=== PATIENT | female | born 1940 | race Caucasian/White ===

== ENCOUNTER → 2017-05-29 | Outpatient (CLI) | payer MEDICARE, OTHER ==
--- NOTE | 2017-06-11 13:31 | MM ---
Reason for exam: additional evaluation requested from prior study. Last mammogram was performed 1 year and 4 months ago. History: Patient is postmenopausal and has history of breast cancer at age 69. Lumpectomy of the right breast, 2008. Radiation therapy of the right breast, 2008. Physical Findings: Nurse did not find any significant physical abnormalities on exam. MG 3D Diag Mammo W/Cad DENISSE Bilateral CC and MLO view(s) were taken. Prior study comparison: January 15, 2016, mammogram, performed at [place]. January 05, 2015, mammogram, performed at [place]. There are scattered fibroglandular densities. Finding: Architectural distortion in the lower inner quadrant of the right breast consistent with known lumpectomy. There is no discrete abnormality. These results were verbally communicated with the patient on 06/11/17. ASSESSMENT: Benign, BI-RAD 2 RECOMMENDATION: Follow-up diagnostic mammogram of both breasts in 1 year.
== END | disposition home or self-care (01) ==
LOC: RADMAMWWP 15:33
PROVIDERS: ATTEND Family Medicine
DX: R92.8 Other abnormal and inconclusive findings on diagnostic imaging of breast (principal)
CPT/HCPCS: G0204; G0279

== ENCOUNTER → 2018-06-07 | Outpatient (CLI) | payer MEDICARE, OTHER ==
--- NOTE | 2018-06-17 07:32 | MM ---
Reason for exam: known biopsy proven malignancy. Last mammogram was performed 1 year ago. History: Patient is postmenopausal and has history of breast cancer at age 69. Lumpectomy of the right breast, 2008. Radiation therapy of the right breast, 2008. Physical Findings: Nurse did not find any significant physical abnormalities on exam. MG 3D Diag Mammo W/Cad DENISSE Bilateral CC, MLO, and ML view(s) were taken. Spot compression XCCL view(s) were taken of the right breast. Prior study comparison: May 29, 2017, bilateral MG 3d diag mammo w/cad DENISSE. January 15, 2016, mammogram, performed at [place]. January 05, 2015, mammogram, performed at [place]. There are scattered fibroglandular densities. There is a distortion in the right breast lower inner position consistent with known lumpectomy site. No discrete abnormality. Asymmetric breast tissue right upper outer quadrant . ASSESSMENT: Benign, BI-RAD 2 RECOMMENDATION: Follow-up diagnostic mammogram in 1 year.
== END ==
LOC: RADMAMWWP 14:48
PROVIDERS: ATTEND Family Medicine
DX: Z08 Encounter for follow-up examination after completed treatment for malignant neoplasm (principal); Z85.3 Personal history of malignant neoplasm of breast
CPT/HCPCS: 77066; G0279; 77062

== ENCOUNTER → 2019-08-01 | Outpatient (CLI) | payer MEDICARE ==
--- NOTE | 2019-08-03 08:24 | MM ---
Reason for exam: additional evaluation requested from prior study. Last mammogram was performed 1 year and 2 months ago. History: Patient is postmenopausal and has history of breast cancer at age 69. Lumpectomy of the right breast, 2008. Radiation therapy of the right breast, 2008. Physical Findings: Nurse did not find any significant physical abnormalities on exam. MG 3D Diag Mammo W/Cad DENISSE Bilateral CC and MLO view(s) were taken. Prior study comparison: June 07, 2018, bilateral MG 3d diag mammo w/cad DENISSE. May 29, 2017, bilateral MG 3d diag mammo w/cad DENISSE. There are scattered fibroglandular densities. Post therapy change on the right. New trabecular thickening in the upper outer quadrant in comparison to remote prior exams. This appears unrelated to the lumpectomy site. These results were verbally communicated with the patient and result sheet given to the patient on 08/01/19. ASSESSMENT: Incomplete: need additional imaging evaluation, BI-RAD 0 RECOMMENDATION: Ultrasound of the right breast. upper outer quadrant
--- NOTE | 2019-08-03 08:29 | USB ---
Reason for exam: additional evaluation requested from abnormal screening. History: Patient is postmenopausal and has history of breast cancer at age 69. Lumpectomy of the right breast, 2009. Radiation therapy of the right breast, 2009. US Breast Limited RT Right limited breast ultrasound including focal area of concern, retroareolar and axilla demonstrates no cystic or solid lesion seen. These results were verbally communicated with the patient and result sheet given to the patient on 08/01/19. ASSESSMENT: Negative, BI-RAD 1 RECOMMENDATION: Breast MRI of both breasts. ACR advised annual MRI patient history of cancer and abnormal mammogram. Surgical consultation of the right breast. High risk patient with trabeculation increased. Called Dr. Anaya's office with mammographic findings and has scheduled an appointment for the patient for 09/09/19 at 11:[address] Lafleur. PRELIMINARY REPORT CALLED AND FAXED TO DR. LAFLEUR ON 08/01/19. Follow-up diagnostic mammogram of both breasts in 1 year.
== END | disposition home or self-care (01) ==
LOC: RADMAMWWP 14:43
PROVIDERS: ATTEND Family Medicine
DX: R92.8 Other abnormal and inconclusive findings on diagnostic imaging of breast (principal)
CPT/HCPCS: 77066; 76642; G0279; 77062

== ENCOUNTER → 2020-09-26 | Outpatient (CLI) | payer MEDICARE ==
--- NOTE | 2020-09-27 10:34 | MM ---
Reason for exam: additional evaluation requested from prior study. Last mammogram was performed 1 year and 2 months ago. History: Patient is postmenopausal and has history of breast cancer at age 69. Lumpectomy of the right breast, 2009. Radiation therapy of the right breast, 2008. Physical Findings: Nurse did not find any significant physical abnormalities on exam. MG 3D Diag Mammo W/Cad DENISSE Bilateral CC and MLO view(s) were taken. Prior study comparison: August 01, 2019, bilateral MG 3d diag mammo w/cad DENISSE. June 07, 2018, bilateral MG 3d diag mammo w/cad DENISSE. The breast tissue is heterogeneously dense. This may lower the sensitivity of mammography. There is no discrete abnormality. Area of skin thickening previously has resolved. Post lumpectomy changes. No significant new findings when compared with previous films. These results were verbally communicated with the patient and result sheet given to the patient on 09/26/20. ASSESSMENT: Benign, BI-RAD 2 RECOMMENDATION: Follow-up diagnostic mammogram of both breasts in 1 year. Manage patient on a clinical basis.
== END | disposition home or self-care (01) ==
LOC: RADMAMWWP 14:26
PROVIDERS: ATTEND Family Medicine
DX: R92.2 Inconclusive mammogram (principal); Z78.0 Asymptomatic menopausal state; Z85.3 Personal history of malignant neoplasm of breast
CPT/HCPCS: 77066; G0279; 77062

== ENCOUNTER → 2021-09-27 | Outpatient (CLI) | payer MEDICARE ==
--- NOTE | 2021-09-30 08:11 | MM ---
Reason for exam: additional evaluation requested from prior study. Last mammogram was performed 1 year ago. History: Patient is postmenopausal and has history of breast cancer at age 69. Lumpectomy of the right breast, 2009. Radiation therapy of the right breast, 2009. Physical Findings: A clinical breast exam by your physician is recommended on an annual basis and results should be correlated with mammographic findings. MG 3D Diag Mammo W/Cad DENISSE Bilateral CC and MLO view(s) were taken. Prior study comparison: September 26, 2020, bilateral MG 3d diag mammo w/cad DENISSE. August 01, 2019, bilateral MG 3d diag mammo w/cad DENISSE. There are scattered fibroglandular densities. Finding: There is stable architectural distortion in the lower inner quadrant of the right breast consistent with post treatment changes. There is no discrete abnormality. Results were given to the patient verbally at the time of the exam. ASSESSMENT: Benign, BI-RAD 2 RECOMMENDATION: Follow-up diagnostic mammogram of both breasts in 1 year.
== END | disposition home or self-care (01) ==
LOC: RADMAMWWP 14:36
PROVIDERS: ATTEND Family Medicine
DX: Z85.3 Personal history of malignant neoplasm of breast (principal)
CPT/HCPCS: 77066; G0279; 77062

== ENCOUNTER → 2022-06-13 | Outpatient (CLI) | payer MEDICARE ==
--- NOTE | 2022-06-13 11:24 | BD ---
EXAMINATION TYPE: Axial Bone Density DATE OF EXAM: 06/13/2022 COMPARISON: NONE CLINICAL HISTORY: 82 years year old Female. ICD-10 CODE: Z78.0 ASYMPTOMATIC MENOPAUSAL STATE Height: 58 Weight: 151.6 FRAX RISK QUESTIONS: Alcohol (3 or more units per day): NO Family History (Parent hip fracture): NO Glucocorticoids (More than 3mos): NO History of Fracture in Adulthood: FINGER Secondary Osteoporosis: 1. Type 1 Diabetes: NO 2. Hyperthyroidism: NO 3. Menopause before 45: NO 4. Malnutrition: NO 5. Chronic liver disease: NO Rheumatoid Arthritis: NO Current Tobacco Use: NO RISK FACTORS HISTORY OF: Hip Fracture (Right/Left): NO Spine Fracture: NO History of Wrist Fracture: NO Surgery to Spine/Hip(right/left)/Wrist (right/left): NO Family History of Osteoporosis: NO Active: YES Diet low in dairy products/other sources of calcium: YES Postmenopausal woman: YES Take estrogen and/or progesterone medications: NO Lost more than 2 inches in height since high school: NO Frequent falls: NO Poor Health: NO Hyperparathyroidism: NO Adrenal Insufficiency: NO MEDICATIONS: Prednisone or other steroids: NO Thyroid Medications:NO Osteoporosis Medications: NO Additional Medications: GLIMEPIRIDE, LISINOPRIL, INSULIN, OMEGA 3, MULTI VIT., VIT D, VIT B12, AMLODI PINE, BIOTIN BREAST CA., 2009 WITH RADIATION EXAM MEASUREMENTS: Bone mineral densitometry was performed using the [employer] System. Bone mineral density as measured about the Lumbar spine is: ----- L1-L4(G/cm2): 1.609 T Score Values are as follows: ----- L1: 3.2 ----- L2: 2.3 ----- L3: 4.3 ----- L4: 4.1 ----- L1-L4: 3.6 BASELINE STUDY Bone mineral density about the R hip (g/cm2): 1.031 Bone mineral density about the L hip (g/cm2): 0.942 T Score values are as follows: -----R Neck: 0.0 -----L Neck: -0.7 -----R Total: -0.1 -----L Total: 0.4 BASELINE STUDY FRAX%s: The graph provided illustrates a 14.5% chance for a major osteoporotic fx and a 2.4% chance f or the hips probability for fx in 10 years time. IMPRESSION: Normal (Values between +1 and -1 indicate normal bone mass). Consider repeating this study in 5 year s or sooner if there is some new clinical indication. NOTE: T-SCORE=SD OF THE YOUNG ADULT MEAN.
== END | disposition home or self-care (01) ==
LOC: RADBDWWP 10:06
PROVIDERS: ATTEND Family Medicine
DX: Z78.0 Asymptomatic menopausal state (principal)
CPT/HCPCS: 77080

== ENCOUNTER → 2022-10-10 | Outpatient (CLI) | payer MEDICARE ==
--- NOTE | 2022-10-10 14:42 | MM ---
Reason for Exam: Additional evaluation requested from prior study. Last mammogram was performed 1 year(s) and 1 month(s) ago. Patient History: Menarche at age 10. First Full-Term at age 21. Postmenopausal. Breast cancer, right, age 69. Previous chest radiation therapy at age 69. 2009, Lumpectomy on the Right side. 2008, Radiation Therapy on the right side. Prior Study Comparison: 08/01/2019 Bilateral Diagnostic Mammogram, [facility]. 08/01/2019 Right Diagnostic Ultrasound, [facility]. 09/26/2020 Bilateral Diagnostic Mammogram, [facility]. 09/27/2021 Bilateral Diagnostic Mammogram, [facility]. Tissue Density: There are scattered fibroglandular densities. Findings: Analyzed By CAD. No suspicious mass within either breast. Posttreatment changes of the right breast. No suspicious group of microcalcifications within either breast. Overall Assessment: Benign, BI-RAD 2 Management: Screening Mammogram of both breasts in 1 year. A clinical breast exam by your physician is recommended on an annual basis and results should be correlated with mammographic findings. This exam should not preclude additional follow-up of suspicious palpable abnormalities. Results were given to the patient verbally at the time of exam. Electronically signed and approved by: Tito Mclean D.O.
== END | disposition home or self-care (01) ==
LOC: RADMAMWWP 14:11
PROVIDERS: ATTEND Family Medicine
DX: R92.8 Other abnormal and inconclusive findings on diagnostic imaging of breast (principal); Z85.3 Personal history of malignant neoplasm of breast; Z78.0 Asymptomatic menopausal state; Z98.890 Other specified postprocedural states
CPT/HCPCS: 77066; G0279; 77062

== ENCOUNTER → 2023-10-23 | Outpatient (CLI) | payer MEDICARE ==
--- NOTE | 2023-10-23 10:03 | MM ---
Reason for Exam: Additional evaluation requested from prior study. Last screening mammogram was performed 12 month(s) ago. Patient History: Menarche at age 10. First Full-Term at age 21. Postmenopausal. Breast cancer, right, age 69. Previous chest radiation therapy at age 69. 2009, Lumpectomy on the Right side. 2008, Radiation Therapy on the right side. Prior Study Comparison: 05/29/2017 Bilateral Diagnostic Mammogram, [facility]. 06/07/2018 Bilateral Diagnostic Mammogram, [facility]. 08/01/2019 Bilateral Diagnostic Mammogram, [facility]. 09/26/2020 Bilateral Diagnostic Mammogram, [facility]. 09/27/2021 Bilateral Diagnostic Mammogram, [facility]. 10/10/2022 Bilateral MG 3D diag mammo w/cad DENISSE, [facility]. Tissue Density: There are scattered areas of fibroglandular density. Findings: Analyzed By CAD. The pattern is symmetrical. Post lumpectomy clips from the patient's neoplasm are in the inferior right breast. Right breast slightly smaller than the left. No suspicious groups of microcalcifications, spiculated or lobular masses, architectural distortion or other secondary signs of malignancy are mammographically apparent. Overall Assessment: Benign, BI-RAD 2 Management: Screening Mammogram of both breasts in 1 year. A negative mammogram report should not preclude additional follow up of suspicious palpable abnormalities. Patient should continue monthly self breast exam. A clinical breast exam by your physician is recommended on an annual basis and results should be correlated with mammographic findings. Note on Raquel scores and lifetime risk: 1. A Raquel score greater than 3% is considered moderate risk. If this is the case, consider specialist referral to assess eligibility for a risk reducing agent. 2. If overall lifetime risk for the development of breast cancer is 20% or higher, the patient may qualify for future screening with alternating mammogram and breast MRI. Electronically signed and approved by: Howard Cox D.O. Radiologis
== END | disposition home or self-care (01) ==
LOC: RADMAMWWP 09:26
PROVIDERS: ATTEND Family Medicine
DX: R92.323 Mammographic fibroglandular density, bilateral breasts (principal); Z85.3 Personal history of malignant neoplasm of breast; Z78.0 Asymptomatic menopausal state
CPT/HCPCS: 77062; 77066

== ENCOUNTER → 2023-11-26 | Outpatient (CLI) | payer MEDICARE ==
--- NOTE | 2023-11-26 13:54 | XR ---
EXAMINATION TYPE: XR knee limited bilateral DATE OF EXAM: 11/26/2023 CLINICAL HISTORY: pain TECHNIQUE: Three views of the lateral malleolus are obtained. COMPARISON: None. FINDINGS: There is no acute fracture/dislocation. Mild degenerative narrowing medial tibiofemoral pablo int space and patellofemoral joint space. 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 The overlying soft tissue appears unremarkable. IMPRESSION: There is no acute fracture or dislocation ICD 10 NO FRACTURE, INITIAL EVALUATION
== END | disposition home or self-care (01) ==
LOC: RADXRMAIN 13:10
PROVIDERS: ATTEND Family Medicine
DX: M25.561 Pain in right knee (principal); M25.562 Pain in left knee

== ENCOUNTER 2024-09-23 12:49 | Emergency (ER) | payer MEDICARE ==
[2024-09-23 12:56] VITALS: BP 158/62; PULSE 87; RESP 18; TEMP 97.8
[2024-09-23 14:48] LABS: Influenza A Not Detected (Not Detectd); Influenza B Not Detected (Not Detectd); RSV Not Detected (Not Detectd)
--- NOTE | 2024-09-23 14:49 | ED ---
General Adult HPI - General Chief complaint: Upper Respiratory Infection Stated complaint: SOB Time Seen by Provider: 09/23/24 12:57 Source: patient, RN notes reviewed Mode of arrival: ambulatory Limitations: no limitations - History of Present Illness Initial comments: 84-year-old female presents to the emergency department for evaluation of nasal congestion. Patient states that this started on Thursday. She notes that she was attempting to get into her primary care provider but they are out of town. She denies any fever, chills, body aches, nausea, vomiting. Denies any shortness of breath. She admits to very mild cough. - Related Data Allergies Allergy/AdvReac Type Severity Reaction Status Date / Time No Known Allergies Allergy Verified 09/23/24 12:56 Review of Systems ROS Statement: Those systems with pertinent positive or pertinent negative responses have been documented in the HPI. ROS Other: All systems not noted in ROS Statement are negative. Past Medical History Past Medical History: Diabetes Mellitus, Hypertension Past Surgical History: Tonsillectomy Additional Past Surgical History / Comment(s): lumpectomy. Past Psychological History: No Psychological Hx Reported Smoking Status: Never smoker Past Alcohol Use History: Occasional Past Drug Use History: None Reported General Exam Limitations: no limitations General appearance: alert, in no apparent distress Head exam: Present: atraumatic, normocephalic, normal inspection Eye exam: Present: normal appearance, PERRL, EOMI. Absent: scleral icterus, conjunctival injection, periorbital swelling ENT exam: Present: normal exam, mucous membranes moist Neck exam: Present: normal inspection. Absent: tenderness, meningismus, lymphadenopathy Respiratory exam: Present: normal lung sounds bilaterally. Absent: respiratory distress, wheezes, rales, rhonchi, stridor Cardiovascular Exam: Present: regular rate, normal rhythm, normal heart sounds. Absent: systolic murmur, diastolic murmur, rubs, gallop, clicks Extremities exam: Present: normal inspection, full ROM, normal capillary refill. Absent: tenderness, pedal edema, joint swelling, calf tenderness Neurological exam: Present: alert, oriented X3 Psychiatric exam: Present: normal affect, normal mood Skin exam: Present: warm, dry, intact, normal color. Absent: rash Course Vital Signs 09/23/24 12:54 Temperature 97.8 F Pulse Rate 87 Respiratory 18 Rate Blood Pressure 158/62 O2 Sat by Pulse 95 Oximetry Medical Decision Making - Medical Decision Making Was pt. sent in by a medical professional or institution (EZEQUIEL Maddox, MACHINE OPERATIONS SUPERVISOR, urgent care, hospital, or long-term...) When possible be specific @ -No Did you speak to anyone other than the patient for history (EMS, parent, family, police, friend...)? What history was obtained from this source @ -Patient's son provided some history of his patient Did you review nursing and triage notes (agree or disagree)? Why? @ -I reviewed and agree with nursing and triage notes Were old charts reviewed (outside hosp., previous admission, EMS record, old EKG, old radiological studies, urgent care reports/EKG's, long-term records)? Report findings @ -No old charts were reviewed Differential Diagnosis (chest pain, altered mental status, abdominal pain women, abdominal pain men, vaginal bleeding, weakness, fever, dyspnea, syncope, headache, dizziness, GI bleed, back pain, seizure, CVA, palpatations, mental health, musculoskeletal)? @ -COVID, influenza, RSV, strep pharyngitis, pneumonia, this list is not all inclusive. EKG interpreted by me (3pts min.). @ -None X-rays interpreted by me (1pt min.). @ -None done CT interpreted by me (1pt min.). @ -None done U/S interpreted by me (1pt. min.). @ -None done What testing was considered but not performed or refused? (CT, X-rays, U/S, labs)? Why? @ -None What meds were considered but not given or refused? Why? @ -None Did you discuss the management of the patient with other professionals (professionals i.e. , EZEQUIEL, MACHINE OPERATIONS SUPERVISOR, lab, RT, psych nurse, social sciences department chair, passenger rate clerk, teacher, principal gifts officer, telephonic nurse case manager)? Give summary @ -No Was smoking cessation discussed for >3mins.? @ -No Was critical care preformed (if so, how long)? @ -No Were there social determinants of health that impacted care today? How? (Homelessness, low income, unemployed, alcoholism, drug addiction, transportation, low edu. Level, literacy, decrease access to med. care, long-term, rehab)? @ -No Was there de-escalation of care discussed even if they declined (Discuss DNR or withdrawal of care, Hospice)? DNR status @ -No What co-morbidities impacted this encounter? (DM, HTN, Smoking, COPD, CAD, Cancer, CVA, ARF, Chemo, Hep., AIDS, mental health diagnosis, sleep apnea, morbid obesity)? @ -None Was patient admitted / discharged? Hospital course, mention meds given and route, prescriptions, significant lab abnormalities, going to OR and other pertinent info. @ -Left AGAINST MEDICAL ADVICE. Patient presents emergency department for nasal congestion. She was tested for COVID, influenza, RSV which were negative. The patient's son is persistent that the patient get antibiotics. I discussed with him that this is not the recommendation. He requested to speak to a physician. I did tell him that I would attempt to get the physician. The patient's son stood up and stated "can I ask you a question? If this was your mom, would you wait 10 days to get an antibiotic?" When I stated "yes" the patients son then stated "well you're an idiot" and the patient eloped from the emergency department. Case discussed with Dr. Amaya Undiagnosed new problem with uncertain prognosis? @ -No Drug Therapy requiring intensive monitoring for toxicity (Heparin, Nitro, Insulin, Cardizem)? @ -No Were any procedures done? @ -No Diagnosis/symptom? @ - viral sinusitis Acute, or Chronic, or Acute on Chronic? @ -Acute Uncomplicated (without systemic symptoms) or Complicated (systemic symptoms)? @ -Uncomplicated Side effects of treatment? @ -No Exacerbation, Progression, or Severe Exacerbation? @ -No Poses a threat to life or bodily function? How? (Chest pain, USA, [place], pneumonia, PE, COPD, DKA, ARF, appy, cholecystitis, CVA, Diverticulitis, Homicidal, Suicidal, threat to staff... and all critical care pts) @ -No - Lab Data Lab Results 09/23/24 Range/Units 13:59 Influenza Type A (PCR) Not Detected (Not Detectd) Influenza Type B (PCR) Not Detected (Not Detectd) RSV (PCR) Not Detected (Not Detectd) SARS-CoV-2 (PCR) Not Detected (Not Detectd) Disposition Clinical Impression: Sinusitis Disposition: LEFT AGAINST MEDICAL ADVICE Condition: Stable Is patient prescribed a controlled substance at d/c from ED?: No Referrals: Garett Anaya MD [Primary Care Provider] - 1-2 days
== END 2024-09-23 15:15 | disposition left against medical advice (07) ==
LOC: EC 12:49
DX: J32.9 Chronic sinusitis, unspecified (principal); Z53.29 Procedure and treatment not carried out because of patient's decision for other reasons
CPT/HCPCS: 87636; 99284

== ENCOUNTER → 2024-11-04 | Outpatient (CLI) | payer MEDICARE ==
--- NOTE | 2024-11-06 21:33 | BD ---
EXAMINATION TYPE: Axial Bone Density DATE OF EXAM: 11/04/2024 CLINICAL HISTORY: 84 years old Female. ICD-10 CODE: Z78.0 ASYMPTOMATIC MENOPAUSAL STA , Additional History: Height: 58.5" Weight: 149lbs FRAX RISK QUESTIONS: Alcohol (3 or more units per day): No Family History (Parent hip fracture): No Glucocorticoids (More than 3mos): No (Ex: prednisone, prednisolone, methylprednisolone, dexamethasone, and hydrocortisone). History of Fracture in Adulthood: Yes, finger Secondary Osteoporosis: 1. Type 1 Diabetes: No 2. Hyperthyroidism: No 3. Menopause before 45: No 4. Malnutrition: No 5. Chronic liver disease: No Rheumatoid Arthritis: No Current Tobacco Use: No RISK FACTORS HISTORY OF: Hip Fracture (Right/Left): No Spine Fracture: No History of Wrist Fracture: No Surgery to Spine/Hip(right/left)/Wrist (right/left): No MEDICATIONS: Thyroid Medications: No Osteoporosis Medications: No EXAM MEASUREMENTS: Bone mineral densitometry was performed using the [employer] System. Bone mineral density as measured about the Lumbar spine is: ----- L1-L4(G/cm2): 1.609 T Score Values are as follows: ----- L1: 2.8 ----- L2: 2.6 ----- L3: 3.9 ----- L4: 4.5 ----- L1-L4: 3.6 Z Score Values are as follows: ----- L1: 4.7 ----- L2: 4.5 ----- L3: 5.7 ----- L4: 6.3 ----- L1-L4: 5.4 Bone mineral density has: no change % since study of: 06/13/2022 Bone mineral density about the R hip (g/cm2): 0.977 Bone mineral density about the L hip (g/cm2): 1.038 T Score values are as follows: -----R Neck: -0.8 -----L Neck: -0.6 -----R Total: -0.2 -----L Total: 0.2 Z Score values are as follows: -----R Neck: 1.5 -----L Neck: 1.7 -----R Total: 1.9 -----L Total: 2.4 Bone mineral density has: decreased -1.6% since study of: 06/13/2022 FRAX%s: The graph provided illustrates a 15.3% chance for a major osteoporotic fx and a 2.8% chance f or the hips probability for fx in 10 years time. IMPRESSION: Normal (Values between +1 and -1 indicate normal bone mass). Consider repeating this study in 5 year s or sooner if there is some new clinical indication. NOTE: T-SCORE=SD OF THE YOUNG ADULT MEAN. \\ [facility], , 11/06/2024 9:31 PM
--- NOTE | 2024-11-07 07:59 | MM ---
Reason for Exam: Screening (asymptomatic). Last mammogram was performed 1 year(s) and 1 month(s) ago. Patient History: Menarche at age 10. First Full-Term at age 21. Postmenopausal. Breast cancer, right, age 69. Previous chest radiation therapy at age 69. 2009, Lumpectomy on the Right side. 2008, Radiation Therapy on the right side. Prior Study Comparison: 09/27/2021 Bilateral Diagnostic Mammogram, [facility]. 10/10/2022 Bilateral MG 3D diag mammo w/cad DENISSE, [facility]. 10/23/2023 Bilateral MG 3D diag mammo w/cad DENISSE, [facility]. Tissue Density: There are scattered areas of fibroglandular density. Findings: Analyzed By CAD. Diminished size of the right breast with surgical clips and distortion is redemonstrated. There is no suspicious group of microcalcifications or new suspicious mass in either breast. Overall Assessment: Benign, BI-RAD 2 Management: Screening Mammogram of both breasts in 1 year. . Patient should continue monthly self-breast exams. A clinical breast exam by your physician is recommended on an annual basis. This exam should not preclude additional follow-up of suspicious palpable abnormalities. Note on Raquel scores and lifetime risk: 1. A Raquel score greater than 3% is considered moderate risk. If this is the case, consider specialist referral to assess eligibility for a risk reducing agent. 2. If overall lifetime risk for the development of breast cancer is 20% or higher, the patient may qualify for future screening with alternating mammogram and breast MRI. [facility], , 11/07/2024 7:56 AM. Electronically signed and approved by: Teofilo Eduardo M.D.
== END | disposition home or self-care (01) ==
LOC: RADBDWWP 14:52
PROVIDERS: ATTEND Family Medicine
DX: Z12.31 Encounter for screening mammogram for malignant neoplasm of breast (principal); R92.323 Mammographic fibroglandular density, bilateral breasts; Z78.0 Asymptomatic menopausal state; Z85.3 Personal history of malignant neoplasm of breast
CPT/HCPCS: 77063; 77067; 77080